=== PATIENT | male | born 1960 | race American Indian/Alaskan Native ===

== ENCOUNTER 2017-01-25 23:52 | Inpatient (IN) | payer OTHER ==
[2017-01-26] MEDS ORDERED: ZOFRAN IV ONE (00:31)
[2017-01-26] MEDS ORDERED: ANTIVERT PO ONE (00:31)
--- NOTE | 2017-01-26 00:42 | Emergency Department Report ---
HPI - General Chief Complaint: Dizziness Time Seen by Provider: 01/26/17 00:24 - HPI HPI: Room 17 The patient is a 56-year-old male presenting with a chief complaint of dizziness. The patient states partially to all his prior to arrival also name down and eating baked chicken and became dizzy. Patient states he feels as though the room was spinning but is unable to determine the direction. The patient states the dizziness worsens whenever he opens his eyes. Patient admits to occasional occipital headache but currently denies having head pain. Patient admits to frequent nausea vomiting. Patient denies any preceding trauma or fever. Patient states he had a similar episode last week that resolved spontaneously after 30 minutes. Patient denies URI symptoms or ear pain Location: Head Duration: Constant 2 hours Quality: Vertigo Severity: Severe Modifying factors: [see above] Context: [see above] Mode of transportation: EMS ED Past Medical Hx - Past Medical History Previous Medical History?: Yes Hx Hypertension: Yes Additional medical history: MIx1 in December 2016 - Surgical History Past Surgical History?: Yes Hx Appendectomy: Yes Additional Surgical History: achilles tendon - Family History Family history: no significant - Social History Smoking Status: Never Smoker Substance Use Type: None (denies illicit drug use) - Medications Home Medications: Home Medications Medication Instructions Recorded Confirmed Last Taken Type Aspirin [Aspirin BABY CHEW TAB] 81 mg PO QDAY 01/26/17 01/26/17 Unknown History Hydrochlorothiazide [HCTZ] 25 mg PO QDAY 01/26/17 01/26/17 Unknown History amLODIPine [Norvasc] 10 mg PO DAILY 01/26/17 01/26/17 Unknown History ED Review of Systems ROS: Stated complaint: LIGHT HEADED, NAUSEA AND VOMITING Other details as noted in HPI Comment: All other systems reviewed and negative Constitutional: denies: chills, fever Eyes: other (opening eyes stimulates vertigo) ENT: denies: ear pain, throat pain Respiratory: denies: cough, shortness of breath, wheezing Cardiovascular: denies: chest pain, palpitations Endocrine: no symptoms reported Gastrointestinal: nausea, vomiting Genitourinary: denies: urgency, dysuria Musculoskeletal: denies: back pain, joint swelling, arthralgia Skin: denies: rash, lesions Neurological: headache, vertigo Psychiatric: denies: anxiety, depression Hematological/Lymphatic: denies: easy bleeding, easy bruising Physical Exam - Physical Exam Vital Signs: Vital Signs 01/26/17 00:24 Temperature 98.8 F Pulse Rate 83 Respiratory 18 Rate Blood Pressure 156/100 [Right] O2 Sat by Pulse 99 Oximetry Physical Exam: GENERAL: The patient is well-developed well-nourished male lying on stretcher appearing to be in moderate discomfort. Patient in the The right lateral decubitus position holding emesis bag. [] HEENT: Normocephalic. Atraumatic. Patient initially refusing to open eyes secondary to extreme vertigo. Patient has moist mucous membranes. NECK: Supple. No meningitic signs are noted. Trachea midline CHEST/LUNGS: Clear to auscultation. There is no respiratory distress noted. HEART/CARDIOVASCULAR: Regular. There is no tachycardia. There is no gallop rub or murmur. ABDOMEN: Abdomen is soft, nontender. Patient has normal bowel sounds. There is no abdominal distention. SKIN: There is no rash. There is no edema. There is no diaphoresis. NEURO: The patient is awake, alert, and oriented. The patient is cooperative. The patient has no focal neurologic deficits. The patient has normal speech. Cranial nerves II through XII grossly intact MUSCULOSKELETAL: There is no evidence of acute injury. ED Course Vital Signs 01/26/17 00:24 Temperature 98.8 F Pulse Rate 83 Respiratory 18 Rate Blood Pressure 156/100 [Right] O2 Sat by Pulse 99 Oximetry - Reevaluation(s) Reevaluation #1: 01/26/17 02:56 Patient states his dizziness has decreased slightly from a 10/10 to an 8/10 Reevaluation #2: 01/26/17 03:51 After Ativan and meclizine the patient states his dizziness is still an 8/10. Will admit the patient to the hospital ED Medical Decision Making - Lab Data Result diagrams: 01/26/17 00:45 01/26/17 00:45 Laboratory Tests 01/26/17 01/26/17 01/26/17 00:45 00:45 00:45 WBC 9.1 RBC 5.27 H Hgb 15.6 H Hct 46.6 H MCV 88 MCH 30 MCHC 34 RDW 13.6 Plt Count 239 Lymph % (Auto) 18.1 Russell % (Auto) 5.9 Eos % (Auto) 1.3 Baso % (Auto) 0.6 Lymph # 1.6 Russell # 0.5 Eos # 0.1 Baso # 0.1 Seg Neutrophils % 74.1 H Seg Neutrophils # 6.8 Sodium 141 Potassium 3.7 Chloride 99.5 Carbon Dioxide 24 Anion Gap 21 BUN 18 Creatinine 1.2 Estimated GFR > 60 BUN/Creatinine Ratio 15.00 Glucose 148 H Calcium 9.5 Total Creatine Kinase 125 CK-MB (CK-2) 1.7 CK-MB (CK-2) Rel Index 1.3 Troponin T < 0.010 Plasma/Serum Alcohol < 0.01 - EKG Data -: EKG Interpreted by Me EKG shows normal: sinus rhythm Rate: normal - EKG Data When compared to previous EKG there are: previous EKG unavailable Interpretation: other (no ischemic changes seen) - Radiology Data Radiology results: report reviewed (CT head), image reviewed (CT head) CT head (read by radiologist)-there is no evidence of acute intracranial process - Differential Diagnosis vertigo, ICH, cerebellar mass Critical care attestation.: If time is entered above; I have spent that time in minutes in the direct care of this critically ill patient, excluding procedure time. ED Disposition Clinical Impression: Vertigo Disposition: DC-09 OP ADMIT IP TO THIS HOSP Is pt being admited?: Yes Does the pt Need Aspirin: Yes Condition: Fair Referrals: PRIMARY CARE, [Primary Care Provider] - 3-5 Days Time of Disposition: 03:53 (hospitalist paged)
[2017-01-26 01:52] LABS: Basophils % (Auto) 0.6 % (0.0-1.8); Eosinophils % (Auto) 1.3 % (0.0-4.3); Hematocrit 46.6 % (35.5-45.6); Hemoglobin 15.6 gm/dl (11.8-15.2); Mean Corpuscular HGB Conc 34 % (32-34); Mean Corpuscular Hemoglobin 30 pg (28-32); Mean Corpuscular Volume 88 fl (84-94); Platelet Count 239 K/mm3 (140-440); Red Blood Count 5.27 M/mm3 (3.65-5.03); Red Cell Distribution Width 13.6 % (13.2-15.2); White Blood Count 9.1 K/mm3 (4.5-11.0)
[2017-01-26 01:55] LABS: Creatine Kinase MB 1.7 ng/mL (0.0-4.0)
[2017-01-26 01:56] LABS: Anion Gap 21 mmol/L; Blood Urea Nitrogen 18 mg/dL (9-20); Calcium 9.5 mg/dL (8.4-10.2); Carbon Dioxide 24 mmol/L (22-30); Chloride 99.5 mmol/L (98-107); Creatine Kinase 125 units/L (55-170); Glucose 148 mg/dL (75-100); Potassium 3.7 mmol/L (3.6-5.0); Sodium 141 mmol/L (137-145)
--- NOTE | 2017-01-26 02:04 | Cat Scan Report ---
FINAL REPORT PROCEDURE: CT HEAD/BRAIN WO CON TECHNIQUE: Computerized tomography of the head was performed without contrast material. HISTORY: vertigo nausea and vomiting COMPARISON: No prior studies are available for comparison. FINDINGS: Skull and scalp: Normal. Paranasal sinuses: Normal. Ventricles and subarachnoid spaces: Normal. Cerebrum: No evidence of hemorrhage, acute infarction or mass . Cerebellum and brainstem: No evidence of hemorrhage, acute infarction or mass. Vasculature: Normal. Comments: None. IMPRESSION: There is no evidence of an acute intracranial process
[2017-01-26] MEDS ORDERED: ATIVAN IV ONE (02:48)
--- NOTE | 2017-01-26 07:10 | Admit Criteria Form ---
Admission Criteria Documentation: VERTIGO Clinical Indications for Admission to Inpatient Care (Place 'X' for any and all applicable criteria): Admission is indicated for ANY ONE of the following(1)(2)(3)(4): [ ]I. Acute bacterial labyrinthitis [ ]II. A suspected etiology that requires admission for treatment [ X]III. Inpatient admission required rather than observation care (Also use Vertigo: Observation Care as appropriate) because of ANY ONE of the following: [ ]a) Hemodynamic instability that is severe or persistent [ ]b) Signs or symptoms that are severe or persistent (eg, vomiting , orthostasis, inability to ambulate) [ ]c) Cardiac arrhythmias of immediate concern [ ]d) Severe (new) neurologic findings requiring inpatient care as indicated by ANY ONE of the following(6)(7) [ ]1) Cerebral bleeding, ischemia, or vasospasm(8)(9) [ ]2) Increased intracranial pressure or hydrocephalus(10) (11)(12) [ ]3) Papilledema [ ]4) Cerebral edema [ ]5) Mass effect on CT scan [ ]e) Vomiting that is severe or persistent [ ]f) Continuous IV infusion of anticoagulation, platelet inhibitor, vasoactive, or antiarrhythmic medication [ ]g) Cerebral bleeding, hydrocephalus, or vasospasm monitoring(14) [ ]h) Increased intracranial pressure or cerebral edema monitoring [X ]i) Other condition, treatment or monitoring requiring inpatient admission [ ]IV. Cerebellar, brainstem, or cerebral ischemia or hemorrhage(5) Extended stay beyond goal length of stay may be needed for evaluating and treating a specific cause of dizziness, including(26): [ ]a) Head injury (27) ( Also use Traumatic Brain Injury, Nonsurgical Treatment guideline) [ ]b) New-onset vertebrobasilar vascular insufficiency(23) [ ]c) Acute Meniere disease with intractable symptoms [ ]d) Cardiac arrhythmias or conduction defects [ ]e) Acute neurologic event causing dizziness [ ]f) Myocardial ischemia [ ]g) Acute bacterial labyrinthitis(1) [ ]h) Severe acute vestibular neuronitis(18) The original [facility] content created by Rebecca Diaz has been revised. The portions of the content which have been revised are identified through the use of italic text or in bold, and Rebecca Diaz has neither reviewed nor approved the modified material. All other unmodified content is copyright [facility]. Please see references footnoted in the original [facility] edition 2016 Admission Criteria Met: Yes
[2017-01-26] MEDS ORDERED: MILK OF MAGNESIA PO PRN (07:53)
[2017-01-26] MEDS ORDERED: DULCOLAX PR PRN (07:53)
[2017-01-26] MEDS: ZOFRAN IM SCH ×4 (10:30→22:35)
[2017-01-26] MEDS: D5NS 1,000 ML IV SCH (13:03)
[2017-01-26] MEDS: ANTIVERT PO SCH (13:16)
[2017-01-26] MEDS: LOVENOX SUB-Q SCH (13:18)
--- NOTE | 2017-01-26 16:00 | History and Physical Report ---
<SUMAN MONTELONGO - Last Filed: 01/27/17 11:20> History of Present Illness Date of examination: 01/26/17 Date of admission: 01/26/17 07:53 Chief complaint: Dizziness, vertigo History of present illness: Patient is a 56 years old -[place] with a history of hypertension, NM a month ago who presents to ED with complaint of dizziness, vertigo. Patient was in his usual state of health until 2 days ago. Patient reported when he was at home eating baked chicken, at the time he he felt dizzy. He described the dizziness as feeling like he was going to pass out. Also she states the room was spinning. Patient he denies lost of consciousness. Patient status the patient gets worse with light and opening his eyes, but sleeping and darkness makes it better. His discomfort was associated with headache nausea and vomiting, but he denies headache at present time. Patient has not started any new medicine or engaged in any new activities lately, but he admitted he had NM a month ago. Patient he has had vertigo in the past but that was very different from his current dizziness. He has not had any changes in vision, slurred speech, weakness numbness or tingling in the last week. Past History Past Medical History: hypertension, other (NM a month ago) Past Surgical History: No surgical history Social history: lives with family Family history: CAD, hypertension, stroke Medications and Allergies Allergies Allergy/AdvReac Type Severity Reaction Status Date / Time No Known Allergies Allergy Unverified 01/26/17 00:07 Home Medications Medication Instructions Recorded Confirmed Last Taken Type Aspirin [Aspirin BABY CHEW TAB] 81 mg PO QDAY 01/26/17 01/26/17 Unknown History Hydrochlorothiazide [HCTZ] 25 mg PO QDAY 01/26/17 01/26/17 Unknown History amLODIPine [Norvasc] 10 mg PO DAILY 01/26/17 01/26/17 Unknown History Active Meds: Active Medications Acetaminophen (Tylenol) 650 mg PO Q4H PRN PRN Reason: Pain MILD(1-3)/Fever >100.5/[place] Bisacodyl (Dulcolax) 10 mg LA QDAY PRN PRN Reason: Constipation unrelieved by MOM Enoxaparin Sodium (Lovenox) 40 mg SUB-Q QDAY [facility] Last Admin: 07/03/17 13:18 Dose: 40 mg Dextrose/Sodium Chloride (D5ns) 1,000 mls @ 75 mls/hr IV DIRECT [facility] Last Admin: 01/26/17 13:03 Dose: 75 mls/hr Magnesium Hydroxide (Milk Of Magnesia) 30 ml PO Q4H PRN PRN Reason: Constipation Meclizine HCl (Antivert) 25 mg PO DAILY [facility] Last Admin: 01/26/17 13:16 Dose: 25 mg Ondansetron HCl (Zofran) 4 mg IM Q4HR [facility] Last Admin: 01/26/17 13:17 Dose: 4 mg Review of Systems Constitutional: sweats, no weight loss, no weight gain, no fever Ears, nose, mouth and throat: headache, vertigo, no tinnitis, no decreased hearing, no nasal congestion Cardiovascular: lightheadedness, high blood pressure, no chest pain, no orthopnea, no palpitations, no syncope, no dyspnea on exertion, no decreased exercise tolerance Respiratory: no cough, no excessive sputum, no hemoptysis, no shortness of breath Gastrointestinal: nausea, vomiting Genitourinary Male: no dysuria, no hematuria, no flank pain Musculoskeletal: no neck stiffness, no neck pain, no shooting arm pain, no arm numbness/tingling, no low back pain Integumentary: no rash, no pruritis Neurological: vertigo, headaches, no head injury, no transient paralysis, no paralysis, no weakness, no numbness, no tingling, no seizures, no syncope, no lack of coordination, no migraines, no double vision, no loss of vision, no hearing difficulties Psychiatric: no anxiety, no memory loss Endocrine: no cold intolerance, no heat intolerance, no polyphagia, no excessive thirst Hematologic/Lymphatic: no easy bruising, no easy bleeding Allergic/Immunologic: no urticaria Exam - Constitutional Vitals: Temp Pulse Resp BP Pulse Ox 98 F 76 16 152/96 97 01/26/17 12:00 01/26/17 12:00 01/26/17 12:00 01/26/17 12:00 01/26/17 12:00 General appearance: Present: no acute distress - EENT Eyes: Present: PERRL ENT: hearing intact - Neck Neck: Present: supple - Respiratory Respiratory effort: normal - Cardiovascular Heart rate: 76 Rhythm: regular - Extremities Extremities: no ischemia Peripheral Pulses: within normal limits - Abdominal General gastrointestinal: Present: soft, non-tender Male genitourinary: Present: deferred - Rectal Rectal Exam: deferred - Integumentary Integumentary: Present: clear, warm - Musculoskeletal Musculoskeletal: strength equal bilaterally - Psychiatric Psychiatric: appropriate mood/affect - Neurologic Neurologic: CNII-XII intact - Allied Health Allied health notes reviewed: nursing Results - Labs CBC & Chem 7: 01/27/17 04:04 01/27/17 04:04 Labs: Laboratory Last Values WBC 9.1 K/mm3 (4.5-11.0) 01/26/17 00:45 RBC 5.27 M/mm3 (3.65-5.03) H 01/26/17 00:45 Hgb 15.6 gm/dl (11.8-15.2) H 01/26/17 00:45 Hct 46.6 % (35.5-45.6) H 01/26/17 00:45 MCV 88 fl (84-94) 01/26/17 00:45 MCH 30 pg (28-32) 01/26/17 00:45 MCHC 34 % (32-34) 01/26/17 00:45 RDW 13.6 % (13.2-15.2) 01/26/17 00:45 Plt Count 239 K/mm3 (140-440) 01/26/17 00:45 Lymph % (Auto) 18.1 % (13.4-35.0) 01/26/17 00:45 Mckean % (Auto) 5.9 % (0.0-7.3) 01/26/17 00:45 Eos % (Auto) 1.3 % (0.0-4.3) 01/26/17 00:45 Baso % (Auto) 0.6 % (0.0-1.8) 01/26/17 00:45 Lymph # 1.6 K/mm3 (1.2-5.4) 01/26/17 00:45 Mckean # 0.5 K/mm3 (0.0-0.8) 01/26/17 00:45 Eos # 0.1 K/mm3 (0.0-0.4) 01/26/17 00:45 Baso # 0.1 K/mm3 (0.0-0.1) 01/26/17 00:45 Seg Neutrophils % 74.1 % (40.0-70.0) H 01/26/17 00:45 Seg Neutrophils # 6.8 K/mm3 (1.8-7.7) 01/26/17 00:45 Sodium 141 mmol/L (137-145) 01/26/17 00:45 Potassium 3.7 mmol/L (3.6-5.0) 01/26/17 00:45 Chloride 99.5 mmol/L (98-107) 01/26/17 00:45 Carbon Dioxide 24 mmol/L (22-30) 01/26/17 00:45 Anion Gap 21 mmol/L 01/26/17 00:45 BUN 18 mg/dL (9-20) 01/26/17 00:45 Creatinine 1.2 mg/dL (0.8-1.5) 01/26/17 00:45 Estimated GFR > 60 ml/min 01/26/17 00:45 BUN/Creatinine Ratio 15.00 % 01/26/17 00:45 Glucose 148 mg/dL (75-100) H 01/26/17 00:45 Calcium 9.5 mg/dL (8.4-10.2) 01/26/17 00:45 Total Creatine Kinase 125 units/L (55-170) 01/26/17 00:45 CK-MB (CK-2) 1.7 ng/mL (0.0-4.0) 01/26/17 00:45 CK-MB (CK-2) Rel Index 1.3 (0-4) 01/26/17 00:45 Troponin T < 0.010 ng/mL (0.00-0.029) 01/26/17 00:45 Plasma/Serum Alcohol < 0.01 gm% (0-0.07) 01/26/17 00:45 - Imaging and Cardiology CT Scan - head: image reviewed (no evidence of acute intracranial process) Assessment and Plan Assessment and plan: ASSESSMENT/PLAN 1. Vertigo/ dizziness We will admit to MED/SURG CT of the head shows no evidence of an acute intracranial process Meclizine 25mg PO daily IV fluid hydration ordered MRI ordered Echocardiogram ordered VL Carotid duplex bilateral ordered Neurology consulted for further evaluation. 2. Hypertension We will continue on home antihypertensive medicines 3. Nausea and vomiting Continue on Zofran 4mg IV PRN DVT prophylaxis On Lovenox Patient full code <ORTEGA RAMSAY M - Last Filed: 01/28/17 16:52> History of Present Illness Date of admission: 01/26/17 07:53 Medications and Allergies Active Meds: Active Medications Acetaminophen (Tylenol) 650 mg PO Q4H PRN PRN Reason: Pain MILD(1-3)/Fever >100.5/[place] Amlodipine Besylate (Norvasc) 10 mg PO DAILY [facility] Last Admin: 01/28/17 10:18 Dose: 10 mg Aspirin (Baby Aspirin) 81 mg PO QDAY [facility] Last Admin: 01/28/17 10:18 Dose: 81 mg Bisacodyl (Dulcolax) 10 mg LA QDAY PRN PRN Reason: Constipation unrelieved by MOM Enoxaparin Sodium (Lovenox) 40 mg SUB-Q QDAY [facility] Last Admin: 01/28/17 10:13 Dose: 40 mg Hydrochlorothiazide (Hctz) 25 mg PO QDAY [facility] Last Admin: 01/28/17 10:18 Dose: 25 mg Dextrose/Sodium Chloride (D5ns) 1,000 mls @ 75 mls/hr IV DIRECT [facility] Last Admin: 01/28/17 05:08 Dose: 75 mls/hr Magnesium Hydroxide (Milk Of Magnesia) 30 ml PO Q4H PRN PRN Reason: Constipation Meclizine HCl (Antivert) 25 mg PO DAILY [facility] Last Admin: 01/28/17 10:18 Dose: 25 mg Methylprednisolone Sodium Succinate (Solu-Medrol) 40 mg IV Q24HR [facility] Last Admin: 01/28/17 10:13 Dose: 40 mg Ondansetron HCl (Zofran) 4 mg IM Q4HR [facility] Last Admin: 01/28/17 15:55 Dose: Not Given Exam - Constitutional Vitals: Temp Pulse Resp BP Pulse Ox 97.7 F 76 20 167/93 100 01/28/17 15:00 01/28/17 15:00 01/28/17 15:00 01/28/17 15:00 01/28/17 15:00 Results - Labs CBC & Chem 7: 01/27/17 04:04 01/27/17 04:04 Labs: Laboratory Last Values WBC 5.5 K/mm3 (4.5-11.0) 01/27/17 04:04 RBC 5.32 M/mm3 (3.65-5.03) H 01/27/17 04:04 Hgb 15.6 gm/dl (11.8-15.2) H 01/27/17 04:04 Hct 47.1 % (35.5-45.6) H 01/27/17 04:04 MCV 89 fl (84-94) 01/27/17 04:04 MCH 29 pg (28-32) 01/27/17 04:04 MCHC 33 % (32-34) 01/27/17 04:04 RDW 13.6 % (13.2-15.2) 01/27/17 04:04 Plt Count 241 K/mm3 (140-440) 01/27/17 04:04 Lymph % (Auto) 15.2 % (13.4-35.0) 01/27/17 04:04 Mckean % (Auto) 1.7 % (0.0-7.3) 01/27/17 04:04 Eos % (Auto) 0.1 % (0.0-4.3) 01/27/17 04:04 Baso % (Auto) 0.1 % (0.0-1.8) 01/27/17 04:04 Lymph # 0.8 K/mm3 (1.2-5.4) L 01/27/17 04:04 Mckean # 0.1 K/mm3 (0.0-0.8) 01/27/17 04:04 Eos # 0.0 K/mm3 (0.0-0.4) 01/27/17 04:04 Baso # 0.0 K/mm3 (0.0-0.1) 01/27/17 04:04 Seg Neutrophils % 82.9 % (40.0-70.0) H 01/27/17 04:04 Seg Neutrophils # 4.6 K/mm3 (1.8-7.7) 01/27/17 04:04 Sodium 137 mmol/L (137-145) 01/27/17 04:04 Potassium 4.1 mmol/L (3.6-5.0) 01/27/17 04:04 Chloride 100.6 mmol/L (98-107) 01/27/17 04:04 Carbon Dioxide 22 mmol/L (22-30) 01/27/17 04:04 Anion Gap 19 mmol/L 01/27/17 04:04 BUN 13 mg/dL (9-20) 01/27/17 04:04 Creatinine 1.1 mg/dL (0.8-1.5) 01/27/17 04:04 Estimated GFR > 60 ml/min 01/27/17 04:04 BUN/Creatinine Ratio 11.81 % 01/27/17 04:04 Glucose 139 mg/dL (75-100) H 01/27/17 04:04 Calcium 8.9 mg/dL (8.4-10.2) 01/27/17 04:04 Total Creatine Kinase 125 units/L (55-170) 01/26/17 00:45 CK-MB (CK-2) 1.7 ng/mL (0.0-4.0) 01/26/17 00:45 CK-MB (CK-2) Rel Index 1.3 (0-4) 01/26/17 00:45 Troponin T < 0.010 ng/mL (0.00-0.029) 01/26/17 00:45 Plasma/Serum Alcohol < 0.01 gm% (0-0.07) 01/26/17 00:45 Assessment and Plan Assessment and plan: I agreed with the assessment and management plan stated above.
[2017-01-27] MEDS: D5NS 1,000 ML IV SCH (01:29)
[2017-01-27] MEDS: ZOFRAN IM SCH ×6 (01:33→23:39)
[2017-01-27 05:38] LABS: Basophils % (Auto) 0.1 % (0.0-1.8); Eosinophils % (Auto) 0.1 % (0.0-4.3); Hematocrit 47.1 % (35.5-45.6); Hemoglobin 15.6 gm/dl (11.8-15.2); Mean Corpuscular HGB Conc 33 % (32-34); Mean Corpuscular Hemoglobin 29 pg (28-32); Mean Corpuscular Volume 89 fl (84-94); Platelet Count 241 K/mm3 (140-440); Red Blood Count 5.32 M/mm3 (3.65-5.03); Red Cell Distribution Width 13.6 % (13.2-15.2); White Blood Count 5.5 K/mm3 (4.5-11.0)
[2017-01-27 05:51] LABS: Anion Gap 19 mmol/L; BUN/Creatinine Ratio 11.81; Blood Urea Nitrogen 13 mg/dL (9-20); Calcium 8.9 mg/dL (8.4-10.2); Carbon Dioxide 22 mmol/L (22-30); Chloride 100.6 mmol/L (98-107); Glucose 139 mg/dL (75-100); Potassium 4.1 mmol/L (3.6-5.0); Sodium 137 mmol/L (137-145)
--- NOTE | 2017-01-27 09:01 | Progress Note ---
<SUMAN MONTELONGO - Last Filed: 01/27/17 11:16> Assessment and Plan Assessment and plan: 1. Vertigo/ dizziness CT of the head normal Continue Meclizine 25mg PO daily Started on Solu-Medrol 40 mg IV daily Continue IV fluid hydration ordered MRI ordered Echocardiogram awaiting for result VL Carotid duplex awaiting for result Neurology consulted for further evaluation. 2. Hypertension Continue on home antihypertensive medicines 3. Nausea and vomiting Started on Zofran 4mg IV PRN DVT prophylaxis On Lovenox Patient full code History Interval history: No overnight changes, patient verbalized feeling better. He denies nausea, vomiting, headache, but he still reported dizziness. Hospitalist Physical - Constitutional Vitals: Temp Pulse Resp BP Pulse Ox 98.2 F 76 18 148/90 98 01/27/17 08:18 01/27/17 08:18 01/27/17 08:18 01/27/17 08:18 01/27/17 08:18 General appearance: Present: no acute distress - EENT Eyes: Present: PERRL ENT: hearing intact - Neck Neck: Present: supple, normal ROM - Respiratory Respiratory effort: normal Respiratory: right: CTA - Cardiovascular Heart rate: 76 Rhythm: regular - Extremities Extremities: no ischemia Peripheral Pulses: within normal limits - Abdominal General gastrointestinal: soft, non-tender - Integumentary Integumentary: Present: clear - Psychiatric Psychiatric: appropriate mood/affect - Neurologic Neurologic: CNII-XII intact - Allied Health Allied health notes reviewed: nursing Results - Labs CBC & Chem 7: 01/27/17 04:04 01/27/17 04:04 Labs: Laboratory Last Values WBC 5.5 K/mm3 (4.5-11.0) 01/27/17 04:04 RBC 5.32 M/mm3 (3.65-5.03) H 01/27/17 04:04 Hgb 15.6 gm/dl (11.8-15.2) H 01/27/17 04:04 Hct 47.1 % (35.5-45.6) H 01/27/17 04:04 MCV 89 fl (84-94) 01/27/17 04:04 MCH 29 pg (28-32) 01/27/17 04:04 MCHC 33 % (32-34) 01/27/17 04:04 RDW 13.6 % (13.2-15.2) 01/27/17 04:04 Plt Count 241 K/mm3 (140-440) 01/27/17 04:04 Lymph % (Auto) 15.2 % (13.4-35.0) 01/27/17 04:04 [place] % (Auto) 1.7 % (0.0-7.3) 01/27/17 04:04 Eos % (Auto) 0.1 % (0.0-4.3) 01/27/17 04:04 Baso % (Auto) 0.1 % (0.0-1.8) 01/27/17 04:04 Lymph # 0.8 K/mm3 (1.2-5.4) L 01/27/17 04:04 [place] # 0.1 K/mm3 (0.0-0.8) 01/27/17 04:04 Eos # 0.0 K/mm3 (0.0-0.4) 01/27/17 04:04 Baso # 0.0 K/mm3 (0.0-0.1) 01/27/17 04:04 Seg Neutrophils % 82.9 % (40.0-70.0) H 01/27/17 04:04 Seg Neutrophils # 4.6 K/mm3 (1.8-7.7) 01/27/17 04:04 Sodium 137 mmol/L (137-145) 01/27/17 04:04 Potassium 4.1 mmol/L (3.6-5.0) 01/27/17 04:04 Chloride 100.6 mmol/L (98-107) 01/27/17 04:04 Carbon Dioxide 22 mmol/L (22-30) 01/27/17 04:04 Anion Gap 19 mmol/L 01/27/17 04:04 BUN 13 mg/dL (9-20) 01/27/17 04:04 Creatinine 1.1 mg/dL (0.8-1.5) 01/27/17 04:04 Estimated GFR > 60 ml/min 01/27/17 04:04 BUN/Creatinine Ratio 11.81 % 01/27/17 04:04 Glucose 139 mg/dL (75-100) H 01/27/17 04:04 Calcium 8.9 mg/dL (8.4-10.2) 01/27/17 04:04 Total Creatine Kinase 125 units/L (55-170) 01/26/17 00:45 CK-MB (CK-2) 1.7 ng/mL (0.0-4.0) 01/26/17 00:45 CK-MB (CK-2) Rel Index 1.3 (0-4) 01/26/17 00:45 Troponin T < 0.010 ng/mL (0.00-0.029) 01/26/17 00:45 Plasma/Serum Alcohol < 0.01 gm% (0-0.07) 01/26/17 00:45 <ORTEGA RAMSAY M - Last Filed: 01/28/17 16:53> Assessment and Plan Assessment and plan: I agreed with the assessment and mangement plan stated above. Hospitalist Physical - Constitutional Vitals: Temp Pulse Resp BP Pulse Ox 97.7 F 76 20 167/93 100 01/28/17 15:00 01/28/17 15:00 01/28/17 15:00 01/28/17 15:00 01/28/17 15:00 Results - Labs CBC & Chem 7: 01/27/17 04:04 01/27/17 04:04 Labs: Laboratory Last Values WBC 5.5 K/mm3 (4.5-11.0) 01/27/17 04:04 RBC 5.32 M/mm3 (3.65-5.03) H 01/27/17 04:04 Hgb 15.6 gm/dl (11.8-15.2) H 01/27/17 04:04 Hct 47.1 % (35.5-45.6) H 01/27/17 04:04 MCV 89 fl (84-94) 01/27/17 04:04 MCH 29 pg (28-32) 01/27/17 04:04 MCHC 33 % (32-34) 01/27/17 04:04 RDW 13.6 % (13.2-15.2) 01/27/17 04:04 Plt Count 241 K/mm3 (140-440) 01/27/17 04:04 Lymph % (Auto) 15.2 % (13.4-35.0) 01/27/17 04:04 [place] % (Auto) 1.7 % (0.0-7.3) 01/27/17 04:04 Eos % (Auto) 0.1 % (0.0-4.3) 01/27/17 04:04 Baso % (Auto) 0.1 % (0.0-1.8) 01/27/17 04:04 Lymph # 0.8 K/mm3 (1.2-5.4) L 01/27/17 04:04 [place] # 0.1 K/mm3 (0.0-0.8) 01/27/17 04:04 Eos # 0.0 K/mm3 (0.0-0.4) 01/27/17 04:04 Baso # 0.0 K/mm3 (0.0-0.1) 01/27/17 04:04 Seg Neutrophils % 82.9 % (40.0-70.0) H 01/27/17 04:04 Seg Neutrophils # 4.6 K/mm3 (1.8-7.7) 01/27/17 04:04 Sodium 137 mmol/L (137-145) 01/27/17 04:04 Potassium 4.1 mmol/L (3.6-5.0) 01/27/17 04:04 Chloride 100.6 mmol/L (98-107) 01/27/17 04:04 Carbon Dioxide 22 mmol/L (22-30) 01/27/17 04:04 Anion Gap 19 mmol/L 01/27/17 04:04 BUN 13 mg/dL (9-20) 01/27/17 04:04 Creatinine 1.1 mg/dL (0.8-1.5) 01/27/17 04:04 Estimated GFR > 60 ml/min 01/27/17 04:04 BUN/Creatinine Ratio 11.81 % 01/27/17 04:04 Glucose 139 mg/dL (75-100) H 01/27/17 04:04 Calcium 8.9 mg/dL (8.4-10.2) 01/27/17 04:04 Total Creatine Kinase 125 units/L (55-170) 01/26/17 00:45 CK-MB (CK-2) 1.7 ng/mL (0.0-4.0) 01/26/17 00:45 CK-MB (CK-2) Rel Index 1.3 (0-4) 01/26/17 00:45 Troponin T < 0.010 ng/mL (0.00-0.029) 01/26/17 00:45 Plasma/Serum Alcohol < 0.01 gm% (0-0.07) 01/26/17 00:45
[2017-01-27] MEDS: LOVENOX SUB-Q SCH (11:09)
[2017-01-27] MEDS: ANTIVERT PO SCH (11:09)
--- NOTE | 2017-01-27 11:35 | Consultation ---
History of Present Illness - Reason for Consult Consult date: 01/27/17 vertigo - History of Present Illness 56 yo BM seen for evaluation and hx of hearing loss right ear and severe vertigo for 2-3 days w/o relief a/w right sided headaches CT of the Head is normal PMH as noted ROS negative for TIA/ stroke head injury exam VS as noted exam shows loss hearing in the right ear can hear from left ear no facial weakness no gross ataxia or dysarthria EOM's are intact but slight variable horizontal nystagmus remainder of exam is negative Impression: 1. Central vertigo hearing loss suggests neural origin the MRI is needed other medical management is appropriate Past History Past Medical History: hypertension, other ([place] a month ago) Past Surgical History: No surgical history Social history: lives with family Family history: CAD, hypertension, stroke Medications and Allergies Allergies Allergy/AdvReac Type Severity Reaction Status Date / Time No Known Allergies Allergy Unverified 01/26/17 00:07 Home Medications Medication Instructions Recorded Confirmed Last Taken Type Aspirin [Aspirin BABY CHEW TAB] 81 mg PO QDAY 01/26/17 01/26/17 Unknown History Hydrochlorothiazide [HCTZ] 25 mg PO QDAY 01/26/17 01/26/17 Unknown History amLODIPine [Norvasc] 10 mg PO DAILY 01/26/17 01/26/17 Unknown History Active Meds: Active Medications Acetaminophen (Tylenol) 650 mg PO Q4H PRN PRN Reason: Pain MILD(1-3)/Fever >100.5/[place] Bisacodyl (Dulcolax) 10 mg MN QDAY PRN PRN Reason: Constipation unrelieved by MOM Enoxaparin Sodium (Lovenox) 40 mg SUB-Q QDAY [facility] Last Admin: 01/27/17 11:09 Dose: 40 mg Dextrose/Sodium Chloride (D5ns) 1,000 mls @ 75 mls/hr IV DIRECT [facility] Last Admin: 01/27/17 01:29 Dose: 75 mls/hr Magnesium Hydroxide (Milk Of Magnesia) 30 ml PO Q4H PRN PRN Reason: Constipation Meclizine HCl (Antivert) 25 mg PO DAILY [facility] Last Admin: 01/27/17 11:09 Dose: 25 mg Methylprednisolone Sodium Succinate (Solu-Medrol) 40 mg IV Q24HR [facility] Last Admin: 07/04/17 11:09 Dose: 40 mg Ondansetron HCl (Zofran) 4 mg IM Q4HR [facility] Last Admin: 01/27/17 11:09 Dose: Not Given Exam - Constitutional Vitals: Temp Pulse Resp BP Pulse Ox 98.2 F 76 18 148/90 98 01/27/17 08:18 01/27/17 08:18 01/27/17 08:18 01/27/17 08:18 01/27/17 08:18 Results - Labs CBC & Chem 7: 01/27/17 04:04 01/27/17 04:04 Labs: Abnormal lab results 01/27/17 01/27/17 Range/Units 04:04 04:04 RBC 5.32 H (3.65-5.03) M/mm3 Hgb 15.6 H (11.8-15.2) gm/dl Hct 47.1 H (35.5-45.6) % Lymph # 0.8 L (1.2-5.4) K/mm3 Seg Neutrophils % 82.9 H (40.0-70.0) % Glucose 139 H (75-100) mg/dL
[2017-01-28] MEDS: ZOFRAN IM SCH ×6 (02:00→21:24)
[2017-01-28] MEDS: D5NS 1,000 ML IV SCH (05:08)
--- NOTE | 2017-01-28 07:34 | Progress Note ---
<SUMAN MONTELONGO - Last Filed: 01/28/17 15:14> Assessment and Plan Assessment and plan: 1. Vertigo/ dizziness CT of the head normal Continue Meclizine and Solu-Medrol IV fluid hydration ordered MRI ordered but no machine broken and awaiting to be taken today Echocardiogram normal VL Carotid duplex normal Followed by Neurology. 2. Bradycardia Placed on remote telemetry for continuous cardiac monitoring IVF hydration 3. Hypertension Continue on home antihypertensive medicines 3. Nausea and vomiting Started on Zofran 4mg IV PRN DVT prophylaxis On Lovenox Patient full code History Interval history: patient has uneventful overnight, denies chest pain, lightheadedness, headache but he reported dizziness. Hospitalist Physical - Constitutional Vitals: Temp Pulse Resp BP Pulse Ox 98.1 F 55 L 20 184/113 100 01/28/17 07:05 01/28/17 07:05 01/28/17 07:05 01/28/17 07:05 01/28/17 07:05 General appearance: Present: no acute distress - EENT Eyes: Present: PERRL ENT: hearing intact - Neck Neck: Present: supple - Respiratory Respiratory effort: normal - Cardiovascular Heart rate: 50 (bradycardia) Rhythm: regular - Extremities Extremities: no ischemia, No edema Peripheral Pulses: within normal limits - Abdominal General gastrointestinal: soft, non-tender - Integumentary Integumentary: Present: clear, warm - Psychiatric Psychiatric: appropriate mood/affect - Neurologic Neurologic: CNII-XII intact - Allied Health Allied health notes reviewed: nursing Results - Labs CBC & Chem 7: 01/27/17 04:04 01/27/17 04:04 Labs: Laboratory Last Values WBC 5.5 K/mm3 (4.5-11.0) 01/27/17 04:04 RBC 5.32 M/mm3 (3.65-5.03) H 01/27/17 04:04 Hgb 15.6 gm/dl (11.8-15.2) H 01/27/17 04:04 Hct 47.1 % (35.5-45.6) H 01/27/17 04:04 MCV 89 fl (84-94) 01/27/17 04:04 MCH 29 pg (28-32) 01/27/17 04:04 MCHC 33 % (32-34) 01/27/17 04:04 RDW 13.6 % (13.2-15.2) 01/27/17 04:04 Plt Count 241 K/mm3 (140-440) 01/27/17 04:04 Lymph % (Auto) 15.2 % (13.4-35.0) 01/27/17 04:04 [place] % (Auto) 1.7 % (0.0-7.3) 01/27/17 04:04 Eos % (Auto) 0.1 % (0.0-4.3) 01/27/17 04:04 Baso % (Auto) 0.1 % (0.0-1.8) 01/27/17 04:04 Lymph # 0.8 K/mm3 (1.2-5.4) L 01/27/17 04:04 [place] # 0.1 K/mm3 (0.0-0.8) 01/27/17 04:04 Eos # 0.0 K/mm3 (0.0-0.4) 01/27/17 04:04 Baso # 0.0 K/mm3 (0.0-0.1) 01/27/17 04:04 Seg Neutrophils % 82.9 % (40.0-70.0) H 01/27/17 04:04 Seg Neutrophils # 4.6 K/mm3 (1.8-7.7) 01/27/17 04:04 Sodium 137 mmol/L (137-145) 01/27/17 04:04 Potassium 4.1 mmol/L (3.6-5.0) 01/27/17 04:04 Chloride 100.6 mmol/L (98-107) 01/27/17 04:04 Carbon Dioxide 22 mmol/L (22-30) 01/27/17 04:04 Anion Gap 19 mmol/L 01/27/17 04:04 BUN 13 mg/dL (9-20) 01/27/17 04:04 Creatinine 1.1 mg/dL (0.8-1.5) 01/27/17 04:04 Estimated GFR > 60 ml/min 01/27/17 04:04 BUN/Creatinine Ratio 11.81 % 01/27/17 04:04 Glucose 139 mg/dL (75-100) H 01/27/17 04:04 Calcium 8.9 mg/dL (8.4-10.2) 01/27/17 04:04 Total Creatine Kinase 125 units/L (55-170) 01/26/17 00:45 CK-MB (CK-2) 1.7 ng/mL (0.0-4.0) 01/26/17 00:45 CK-MB (CK-2) Rel Index 1.3 (0-4) 01/26/17 00:45 Troponin T < 0.010 ng/mL (0.00-0.029) 01/26/17 00:45 Plasma/Serum Alcohol < 0.01 gm% (0-0.07) 01/26/17 00:45 <ORTEGA RAMSAY M - Last Filed: 01/28/17 16:53> Assessment and Plan Assessment and plan: I agreed with the assessment and mangement plan stated above. Hospitalist Physical - Constitutional Vitals: Temp Pulse Resp BP Pulse Ox 97.7 F 76 20 167/93 100 01/28/17 15:00 01/28/17 15:00 01/28/17 15:00 01/28/17 15:00 01/28/17 15:00 Results - Labs CBC & Chem 7: 01/27/17 04:04 01/27/17 04:04 Labs: Laboratory Last Values WBC 5.5 K/mm3 (4.5-11.0) 01/27/17 04:04 RBC 5.32 M/mm3 (3.65-5.03) H 01/27/17 04:04 Hgb 15.6 gm/dl (11.8-15.2) H 01/27/17 04:04 Hct 47.1 % (35.5-45.6) H 01/27/17 04:04 MCV 89 fl (84-94) 01/27/17 04:04 MCH 29 pg (28-32) 01/27/17 04:04 MCHC 33 % (32-34) 01/27/17 04:04 RDW 13.6 % (13.2-15.2) 01/27/17 04:04 Plt Count 241 K/mm3 (140-440) 01/27/17 04:04 Lymph % (Auto) 15.2 % (13.4-35.0) 01/27/17 04:04 [place] % (Auto) 1.7 % (0.0-7.3) 01/27/17 04:04 Eos % (Auto) 0.1 % (0.0-4.3) 01/27/17 04:04 Baso % (Auto) 0.1 % (0.0-1.8) 01/27/17 04:04 Lymph # 0.8 K/mm3 (1.2-5.4) L 01/27/17 04:04 [place] # 0.1 K/mm3 (0.0-0.8) 01/27/17 04:04 Eos # 0.0 K/mm3 (0.0-0.4) 01/27/17 04:04 Baso # 0.0 K/mm3 (0.0-0.1) 01/27/17 04:04 Seg Neutrophils % 82.9 % (40.0-70.0) H 01/27/17 04:04 Seg Neutrophils # 4.6 K/mm3 (1.8-7.7) 01/27/17 04:04 Sodium 137 mmol/L (137-145) 01/27/17 04:04 Potassium 4.1 mmol/L (3.6-5.0) 01/27/17 04:04 Chloride 100.6 mmol/L (98-107) 01/27/17 04:04 Carbon Dioxide 22 mmol/L (22-30) 01/27/17 04:04 Anion Gap 19 mmol/L 01/27/17 04:04 BUN 13 mg/dL (9-20) 01/27/17 04:04 Creatinine 1.1 mg/dL (0.8-1.5) 01/27/17 04:04 Estimated GFR > 60 ml/min 01/27/17 04:04 BUN/Creatinine Ratio 11.81 % 01/27/17 04:04 Glucose 139 mg/dL (75-100) H 01/27/17 04:04 Calcium 8.9 mg/dL (8.4-10.2) 01/27/17 04:04 Total Creatine Kinase 125 units/L (55-170) 01/26/17 00:45 CK-MB (CK-2) 1.7 ng/mL (0.0-4.0) 01/26/17 00:45 CK-MB (CK-2) Rel Index 1.3 (0-4) 01/26/17 00:45 Troponin T < 0.010 ng/mL (0.00-0.029) 01/26/17 00:45 Plasma/Serum Alcohol < 0.01 gm% (0-0.07) 01/26/17 00:45
[2017-01-28] MEDS: LOVENOX SUB-Q SCH (10:13)
[2017-01-28] MEDS: BABY ASPIRIN PO SCH (10:18)
[2017-01-28] MEDS: NORVASC PO SCH (10:18)
[2017-01-28] MEDS: HCTZ PO SCH (10:18)
[2017-01-28] MEDS: ANTIVERT PO SCH (10:18)
--- NOTE | 2017-01-28 12:03 | Magnetic Resonance Report ---
MRI OF THE BRAIN WITHOUT CONTRAST: HISTORY: Vertigo PROCEDURE: Multiplanar, multisequence MR imaging of the brain without IV contrast was performed. FINDINGS: CT head performed 01/26/17 was reviewed. MRI demonstrates a 1.2 cm area of diffusion restriction in the right middle cerebellar peduncle on diffusion image 12. There are also 2 tiny foci of diffusion restriction measuring 3-4 mm in the inferior right cerebellar hemisphere on diffusion image 10. No additional areas of diffusion restriction are identified. No evidence for hemorrhage, mass or extra axial fluid collection. Mild nonspecific chronic white matter changes are noted which are likely appropriate for this persons age. No chronic infarct. The midline structures are central. The basal cisterns are patent. Normal ventricular size. The orbital cavities and sella turcica demonstrate no abnormality. The visualized paranasal sinuses and mastoid air cells are well aerated. IMPRESSION: Focal areas of acute to subacute ischemia are identified in the right middle cerebellar peduncle and inferior right cerebellar hemisphere as described.
[2017-01-29] MEDS: D5NS 1,000 ML IV SCH ×2 (00:11→15:41)
[2017-01-29] MEDS: ZOFRAN IM SCH ×6 (02:19→22:28)
--- NOTE | 2017-01-29 08:22 | Progress Note ---
<SUMAN MONTELONGO - Last Filed: 01/29/17 14:16> Assessment and Plan Assessment and plan: 1.Acute Ischemic Stroke MRI of the brain shows acute ischemia in the right middle cerebellar peduncle and inferior right cerebellar hemisphere. Patient started on Plavix, aspirin and Lipitor Physical therapy consulted Spoke with case management to look a placement for Acute Rehabilitation. Followed by Neurology. 2. Vertigo/ dizziness Due to acute ischemia to right middle and right inferior cerebellar hemisphere CT of the head normal Continue Meclizine and discontinued Solu-Medrol Gently IV fluid hydration Echocardiogram normal VL Carotid duplex normal 3. Hypertension Continue on home antihypertensive medicines 4. 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 DVT prophylaxis On Lovenox Patient full code Hospitalist Physical - Constitutional Vitals: Temp Pulse Resp BP Pulse Ox 97.5 F L 65 22 143/94 98 01/29/17 04:00 01/29/17 04:00 01/29/17 04:00 01/29/17 04:00 01/29/17 04:00 General appearance: Present: no acute distress Results - Labs CBC & Chem 7: 01/27/17 04:04 01/27/17 04:04 Labs: Laboratory Last Values WBC 5.5 K/mm3 (4.5-11.0) 01/27/17 04:04 RBC 5.32 M/mm3 (3.65-5.03) H 01/27/17 04:04 Hgb 15.6 gm/dl (11.8-15.2) H 01/27/17 04:04 Hct 47.1 % (35.5-45.6) H 01/27/17 04:04 MCV 89 fl (84-94) 01/27/17 04:04 MCH 29 pg (28-32) 01/27/17 04:04 MCHC 33 % (32-34) 01/27/17 04:04 RDW 13.6 % (13.2-15.2) 01/27/17 04:04 Plt Count 241 K/mm3 (140-440) 01/27/17 04:04 Lymph % (Auto) 15.2 % (13.4-35.0) 01/27/17 04:04 [place] % (Auto) 1.7 % (0.0-7.3) 01/27/17 04:04 Eos % (Auto) 0.1 % (0.0-4.3) 01/27/17 04:04 Baso % (Auto) 0.1 % (0.0-1.8) 01/27/17 04:04 Lymph # 0.8 K/mm3 (1.2-5.4) L 01/27/17 04:04 [place] # 0.1 K/mm3 (0.0-0.8) 01/27/17 04:04 Eos # 0.0 K/mm3 (0.0-0.4) 01/27/17 04:04 Baso # 0.0 K/mm3 (0.0-0.1) 01/27/17 04:04 Seg Neutrophils % 82.9 % (40.0-70.0) H 01/27/17 04:04 Seg Neutrophils # 4.6 K/mm3 (1.8-7.7) 01/27/17 04:04 Sodium 137 mmol/L (137-145) 01/27/17 04:04 Potassium 4.1 mmol/L (3.6-5.0) 01/27/17 04:04 Chloride 100.6 mmol/L (98-107) 01/27/17 04:04 Carbon Dioxide 22 mmol/L (22-30) 01/27/17 04:04 Anion Gap 19 mmol/L 01/27/17 04:04 BUN 13 mg/dL (9-20) 01/27/17 04:04 Creatinine 1.1 mg/dL (0.8-1.5) 01/27/17 04:04 Estimated GFR > 60 ml/min 01/27/17 04:04 BUN/Creatinine Ratio 11.81 % 01/27/17 04:04 Glucose 139 mg/dL (75-100) H 01/27/17 04:04 Calcium 8.9 mg/dL (8.4-10.2) 01/27/17 04:04 Total Creatine Kinase 125 units/L (55-170) 01/26/17 00:45 CK-MB (CK-2) 1.7 ng/mL (0.0-4.0) 01/26/17 00:45 CK-MB (CK-2) Rel Index 1.3 (0-4) 01/26/17 00:45 Troponin T < 0.010 ng/mL (0.00-0.029) 01/26/17 00:45 Plasma/Serum Alcohol < 0.01 gm% (0-0.07) 01/26/17 00:45 <ORTEGA RAMSAY M - Last Filed: 01/29/17 16:23> Assessment and Plan Assessment and plan: I agreed with the management and plan of the patient. Hospitalist Physical - Constitutional Vitals: Temp Pulse Resp BP Pulse Ox 98.1 F 64 19 173/114 98 01/29/17 12:00 01/29/17 12:00 01/29/17 12:00 01/29/17 12:00 01/29/17 10:00 Results - Labs CBC & Chem 7: 01/27/17 04:04 01/27/17 04:04 Labs: Laboratory Last Values WBC 5.5 K/mm3 (4.5-11.0) 01/27/17 04:04 RBC 5.32 M/mm3 (3.65-5.03) H 01/27/17 04:04 Hgb 15.6 gm/dl (11.8-15.2) H 01/27/17 04:04 Hct 47.1 % (35.5-45.6) H 01/27/17 04:04 MCV 89 fl (84-94) 01/27/17 04:04 MCH 29 pg (28-32) 01/27/17 04:04 MCHC 33 % (32-34) 01/27/17 04:04 RDW 13.6 % (13.2-15.2) 01/27/17 04:04 Plt Count 241 K/mm3 (140-440) 01/27/17 04:04 Lymph % (Auto) 15.2 % (13.4-35.0) 01/27/17 04:04 [place] % (Auto) 1.7 % (0.0-7.3) 01/27/17 04:04 Eos % (Auto) 0.1 % (0.0-4.3) 01/27/17 04:04 Baso % (Auto) 0.1 % (0.0-1.8) 01/27/17 04:04 Lymph # 0.8 K/mm3 (1.2-5.4) L 01/27/17 04:04 [place] # 0.1 K/mm3 (0.0-0.8) 01/27/17 04:04 Eos # 0.0 K/mm3 (0.0-0.4) 01/27/17 04:04 Baso # 0.0 K/mm3 (0.0-0.1) 01/27/17 04:04 Seg Neutrophils % 82.9 % (40.0-70.0) H 01/27/17 04:04 Seg Neutrophils # 4.6 K/mm3 (1.8-7.7) 01/27/17 04:04 Sodium 137 mmol/L (137-145) 01/27/17 04:04 Potassium 4.1 mmol/L (3.6-5.0) 01/27/17 04:04 Chloride 100.6 mmol/L (98-107) 01/27/17 04:04 Carbon Dioxide 22 mmol/L (22-30) 01/27/17 04:04 Anion Gap 19 mmol/L 01/27/17 04:04 BUN 13 mg/dL (9-20) 01/27/17 04:04 Creatinine 1.1 mg/dL (0.8-1.5) 01/27/17 04:04 Estimated GFR > 60 ml/min 01/27/17 04:04 BUN/Creatinine Ratio 11.81 % 01/27/17 04:04 Glucose 139 mg/dL (75-100) H 01/27/17 04:04 Calcium 8.9 mg/dL (8.4-10.2) 01/27/17 04:04 Total Creatine Kinase 125 units/L (55-170) 01/26/17 00:45 CK-MB (CK-2) 1.7 ng/mL (0.0-4.0) 01/26/17 00:45 CK-MB (CK-2) Rel Index 1.3 (0-4) 01/26/17 00:45 Troponin T < 0.010 ng/mL (0.00-0.029) 01/26/17 00:45 Plasma/Serum Alcohol < 0.01 gm% (0-0.07) 01/26/17 00:45
[2017-01-29] MEDS: HCTZ PO SCH (10:05)
[2017-01-29] MEDS: BABY ASPIRIN PO SCH (10:05)
[2017-01-29] MEDS: NORVASC PO SCH (10:05)
[2017-01-29] MEDS: PLAVIX PO SCH (10:05)
[2017-01-29] MEDS: LOVENOX SUB-Q SCH (10:06)
[2017-01-29] MEDS: ANTIVERT PO SCH (10:06)
[2017-01-30] MEDS: ZOFRAN IM SCH ×5 (02:52→18:55)
[2017-01-30] MEDS: D5NS 1,000 ML IV SCH (06:50)
--- NOTE | 2017-01-30 07:21 | Vascular Lab Report ---
CAROTID DUPLEX STUDY: RIGHT PSVEDV CCA PROX:7821 CCA DIST:7725 ICA PROX:4717 ICA MID:6727 ICA DIST:6829 ECA: 50 VERT: 38 15 LEFT PSVEDV CCA PROX:9524 CCA DIST:8726 ICA PROX:4918 ICA MID:6730 ICA DIST:5724 ECA: 52 VERT: 45 16 REASON FOR EXAM: Carotid artery stenosis/syncope. COMMENTS ON THE RIGHT: Doppler frequency analysis is consistent with 16 to 49 percent diameter reduction of the internal carotid artery. Minimal amount of plaque is seen. The common carotid artery is patent. The external carotid artery is patent. The vertebral artery has antegrade flow. COMMENTS ON THE LEFT: Doppler frequency analysis is consistent with 16 to 49 percent diameter reduction of the internal carotid artery. Minimal amount of plaque is seen. The common carotid artery is patent. The external carotid artery is patent. The vertebral artery has antegrade flow. IMPRESSION: Less than 50% diameter reduction in the internal carotid arteries bilaterally. Consider repeat carotid artery duplex in 12 months.78
--- NOTE | 2017-01-30 08:33 | Progress Note ---
<SUMAN MONTELONGO - Last Filed: 01/30/17 13:53> Assessment and Plan Assessment and plan: 1.Acute Ischemic Stroke MRI of the brain shows acute ischemia in the right middle cerebellar peduncle and inferior right cerebellar hemisphere. Continue on Plavix, aspirin and Lipitor Physical therapy on board Awaiting for Acute Rehabilitation placement . Followed by Neurology. 2. Vertigo/ dizziness Due to acute ischemia to right middle and right inferior cerebellar hemisphere CT of the head normal Continue Meclizine Gently IV fluid hydration Echocardiogram normal VL Carotid duplex normal 3. Hypertension Continue on home antihypertensive medicines 4. 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 DVT prophylaxis On Lovenox Patient full code History Interval history: patient reported mild headache but, denies chest pain, lightheadedness and dizziness. Hospitalist Physical - Constitutional Vitals: Temp Pulse Resp BP Pulse Ox 98.7 F 67 20 127/93 99 01/30/17 03:35 01/30/17 03:35 01/30/17 03:35 01/30/17 03:35 01/30/17 03:35 General appearance: Present: no acute distress - EENT Eyes: Present: PERRL ENT: hearing intact - Neck Neck: Present: supple - Respiratory Respiratory effort: normal - Cardiovascular Heart rate: 65 Rhythm: regular - Extremities Extremities: no ischemia Peripheral Pulses: within normal limits - Abdominal General gastrointestinal: soft, non-tender - Integumentary Integumentary: Present: clear - Psychiatric Psychiatric: appropriate mood/affect - Neurologic Neurologic: moves all extremities - Allied Health Allied health notes reviewed: nursing Results - Labs CBC & Chem 7: 01/27/17 04:04 01/27/17 04:04 Labs: Laboratory Last Values WBC 5.5 K/mm3 (4.5-11.0) 01/27/17 04:04 RBC 5.32 M/mm3 (3.65-5.03) H 01/27/17 04:04 Hgb 15.6 gm/dl (11.8-15.2) H 01/27/17 04:04 Hct 47.1 % (35.5-45.6) H 01/27/17 04:04 MCV 89 fl (84-94) 01/27/17 04:04 MCH 29 pg (28-32) 01/27/17 04:04 MCHC 33 % (32-34) 01/27/17 04:04 RDW 13.6 % (13.2-15.2) 01/27/17 04:04 Plt Count 241 K/mm3 (140-440) 01/27/17 04:04 Lymph % (Auto) 15.2 % (13.4-35.0) 01/27/17 04:04 [place] % (Auto) 1.7 % (0.0-7.3) 01/27/17 04:04 Eos % (Auto) 0.1 % (0.0-4.3) 01/27/17 04:04 Baso % (Auto) 0.1 % (0.0-1.8) 01/27/17 04:04 Lymph # 0.8 K/mm3 (1.2-5.4) L 01/27/17 04:04 [place] # 0.1 K/mm3 (0.0-0.8) 01/27/17 04:04 Eos # 0.0 K/mm3 (0.0-0.4) 01/27/17 04:04 Baso # 0.0 K/mm3 (0.0-0.1) 01/27/17 04:04 Seg Neutrophils % 82.9 % (40.0-70.0) H 01/27/17 04:04 Seg Neutrophils # 4.6 K/mm3 (1.8-7.7) 01/27/17 04:04 Sodium 137 mmol/L (137-145) 01/27/17 04:04 Potassium 4.1 mmol/L (3.6-5.0) 01/27/17 04:04 Chloride 100.6 mmol/L (98-107) 01/27/17 04:04 Carbon Dioxide 22 mmol/L (22-30) 01/27/17 04:04 Anion Gap 19 mmol/L 01/27/17 04:04 BUN 13 mg/dL (9-20) 01/27/17 04:04 Creatinine 1.1 mg/dL (0.8-1.5) 01/27/17 04:04 Estimated GFR > 60 ml/min 01/27/17 04:04 BUN/Creatinine Ratio 11.81 % 01/27/17 04:04 Glucose 139 mg/dL (75-100) H 01/27/17 04:04 Calcium 8.9 mg/dL (8.4-10.2) 01/27/17 04:04 Total Creatine Kinase 125 units/L (55-170) 01/26/17 00:45 CK-MB (CK-2) 1.7 ng/mL (0.0-4.0) 01/26/17 00:45 CK-MB (CK-2) Rel Index 1.3 (0-4) 01/26/17 00:45 Troponin T < 0.010 ng/mL (0.00-0.029) 01/26/17 00:45 Plasma/Serum Alcohol < 0.01 gm% (0-0.07) 01/26/17 00:45 <ORTEGA RAMSAY M - Last Filed: 01/31/17 07:58> Assessment and Plan Assessment and plan: I have discussed the assessment and management plan of the patient and agreed with the above plan of care. Hospitalist Physical - Constitutional Vitals: Temp Pulse Resp BP Pulse Ox 98.6 F 97 H 20 128/95 98 01/30/17 21:35 01/30/17 21:35 01/30/17 21:35 01/30/17 21:35 01/30/17 21:35 Results - Labs CBC & Chem 7: 01/27/17 04:04 01/27/17 04:04 Labs: Laboratory Last Values WBC 5.5 K/mm3 (4.5-11.0) 01/27/17 04:04 RBC 5.32 M/mm3 (3.65-5.03) H 01/27/17 04:04 Hgb 15.6 gm/dl (11.8-15.2) H 01/27/17 04:04 Hct 47.1 % (35.5-45.6) H 01/27/17 04:04 MCV 89 fl (84-94) 01/27/17 04:04 MCH 29 pg (28-32) 01/27/17 04:04 MCHC 33 % (32-34) 01/27/17 04:04 RDW 13.6 % (13.2-15.2) 01/27/17 04:04 Plt Count 241 K/mm3 (140-440) 01/27/17 04:04 Lymph % (Auto) 15.2 % (13.4-35.0) 01/27/17 04:04 [place] % (Auto) 1.7 % (0.0-7.3) 01/27/17 04:04 Eos % (Auto) 0.1 % (0.0-4.3) 01/27/17 04:04 Baso % (Auto) 0.1 % (0.0-1.8) 01/27/17 04:04 Lymph # 0.8 K/mm3 (1.2-5.4) L 01/27/17 04:04 [place] # 0.1 K/mm3 (0.0-0.8) 01/27/17 04:04 Eos # 0.0 K/mm3 (0.0-0.4) 01/27/17 04:04 Baso # 0.0 K/mm3 (0.0-0.1) 01/27/17 04:04 Seg Neutrophils % 82.9 % (40.0-70.0) H 01/27/17 04:04 Seg Neutrophils # 4.6 K/mm3 (1.8-7.7) 01/27/17 04:04 Sodium 137 mmol/L (137-145) 01/27/17 04:04 Potassium 4.1 mmol/L (3.6-5.0) 01/27/17 04:04 Chloride 100.6 mmol/L (98-107) 01/27/17 04:04 Carbon Dioxide 22 mmol/L (22-30) 01/27/17 04:04 Anion Gap 19 mmol/L 01/27/17 04:04 BUN 13 mg/dL (9-20) 01/27/17 04:04 Creatinine 1.1 mg/dL (0.8-1.5) 01/27/17 04:04 Estimated GFR > 60 ml/min 01/27/17 04:04 BUN/Creatinine Ratio 11.81 % 01/27/17 04:04 Glucose 139 mg/dL (75-100) H 01/27/17 04:04 Calcium 8.9 mg/dL (8.4-10.2) 01/27/17 04:04 Total Creatine Kinase 125 units/L (55-170) 01/26/17 00:45 CK-MB (CK-2) 1.7 ng/mL (0.0-4.0) 01/26/17 00:45 CK-MB (CK-2) Rel Index 1.3 (0-4) 01/26/17 00:45 Troponin T < 0.010 ng/mL (0.00-0.029) 01/26/17 00:45 Plasma/Serum Alcohol < 0.01 gm% (0-0.07) 01/26/17 00:45
[2017-01-30] MEDS: HCTZ PO SCH (10:35)
[2017-01-30] MEDS: ANTIVERT PO SCH (10:35)
[2017-01-30] MEDS: NORVASC PO SCH (10:35)
[2017-01-30] MEDS: BABY ASPIRIN PO SCH (10:35)
[2017-01-30] MEDS: LOVENOX SUB-Q SCH (10:36)
[2017-01-30] MEDS: PLAVIX PO SCH (10:36)
[2017-01-30] MEDS: TYLENOL PO PRN (21:41)
[2017-01-31] MEDS: D5NS 1,000 ML IV SCH ×2 (00:13→10:36)
[2017-01-31] MEDS: ZOFRAN IM SCH ×6 (06:03→23:48)
[2017-01-31 08:18] LABS: Hematocrit 51.7 % (35.5-45.6); Hemoglobin 16.9 gm/dl (11.8-15.2); Mean Corpuscular HGB Conc 33 % (32-34); Mean Corpuscular Hemoglobin 29 pg (28-32); Mean Corpuscular Volume 88 fl (84-94); Platelet Count 254 K/mm3 (140-440); Red Blood Count 5.86 M/mm3 (3.65-5.03); Red Cell Distribution Width 13.4 % (13.2-15.2); White Blood Count 5.9 K/mm3 (4.5-11.0)
[2017-01-31 08:37] LABS: BUN/Creatinine Ratio 7.64; Chloride 100.2 mmol/L (98-107); Potassium 4.5 mmol/L (3.6-5.0)
[2017-01-31] MEDS: NORVASC PO SCH (10:28)
[2017-01-31] MEDS: PLAVIX PO SCH (10:28)
[2017-01-31] MEDS: ANTIVERT PO SCH (10:28)
[2017-01-31] MEDS: HCTZ PO SCH (10:28)
[2017-01-31] MEDS: LOVENOX SUB-Q SCH (10:28)
[2017-01-31] MEDS: BABY ASPIRIN PO SCH (10:36)
[2017-01-31] MEDS ORDERED: PERCOCET 5/325 PO PRN (10:43)
[2017-01-31] MEDS ORDERED: CHLORASEPTIC MM PRN (10:44)
--- NOTE | 2017-01-31 10:47 | Progress Note ---
Assessment and Plan Assessment and plan: Acute Ischemic Stroke with central vertigo - MRI of the brain shows acute ischemia in the right middle cerebellar peduncle and inferior right cerebellar hemisphere - Continue plavix, aspirin and lipitor - Physical therapy - Electrocardiogram and carotid duplex normal - Gentle IV fluid hydration HTN - BP is currently controlled Acute Kidney Injury - Cr this morning is 1.7 - Gentle hydration DVT prophylaxis - On levonox Disposition - Waiting acute rehabilitation placement History Interval history: Patient was seen and evaluated this morning, patient's vertigo was getting better, complains sore throat but no difficulty of swelling. Hospitalist Physical - Physical exam Narrative exam: Not in cardiopulmonary distress. The patient appeared well nourished and normally developed. Vital signs as documented. Head exam is unremarkable. No scleral icterus . Neck is without jugular venous distension, thyromegaly, or carotid bruits. Lungs are clear to auscultation. Cardiac exam reveals regular rate and Rhythm. Abdominal exam reveals normal bowel sounds, no masses, no organomegaly and no aortic enlargement. Extremities are nonedematous and both femoral and pedal pulses are normal. 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 Fascial asymmetry. - Constitutional Vitals: Temp Pulse Resp BP Pulse Ox 98.0 F 71 20 122/92 97 01/31/17 07:00 01/31/17 07:00 01/31/17 07:00 01/31/17 07:00 01/31/17 07:00 General appearance: Present: no acute distress Results - Labs CBC & Chem 7: 01/31/17 08:05 01/31/17 08:05 Labs: Laboratory Last Values WBC 5.9 K/mm3 (4.5-11.0) 01/31/17 08:05 RBC 5.86 M/mm3 (3.65-5.03) H 01/31/17 08:05 Hgb 16.9 gm/dl (11.8-15.2) H 01/31/17 08:05 Hct 51.7 % (35.5-45.6) H 01/31/17 08:05 MCV 88 fl (84-94) 01/31/17 08:05 MCH 29 pg (28-32) 01/31/17 08:05 MCHC 33 % (32-34) 01/31/17 08:05 RDW 13.4 % (13.2-15.2) 01/31/17 08:05 Plt Count 254 K/mm3 (140-440) 01/31/17 08:05 Lymph % (Auto) 15.2 % (13.4-35.0) 01/27/17 04:04 [place] % (Auto) 1.7 % (0.0-7.3) 01/27/17 04:04 Eos % (Auto) 0.1 % (0.0-4.3) 01/27/17 04:04 Baso % (Auto) 0.1 % (0.0-1.8) 01/27/17 04:04 Lymph # 0.8 K/mm3 (1.2-5.4) L 01/27/17 04:04 [place] # 0.1 K/mm3 (0.0-0.8) 01/27/17 04:04 Eos # 0.0 K/mm3 (0.0-0.4) 01/27/17 04:04 Baso # 0.0 K/mm3 (0.0-0.1) 01/27/17 04:04 Seg Neutrophils % 82.9 % (40.0-70.0) H 01/27/17 04:04 Seg Neutrophils # 4.6 K/mm3 (1.8-7.7) 01/27/17 04:04 Sodium 141 mmol/L (137-145) 01/31/17 08:05 Potassium 4.5 mmol/L (3.6-5.0) 01/31/17 08:05 Chloride 100.2 mmol/L (98-107) 01/31/17 08:05 Carbon Dioxide 30 mmol/L (22-30) D 01/31/17 08:05 Anion Gap 15 mmol/L 01/31/17 08:05 BUN 13 mg/dL (9-20) 01/31/17 08:05 Creatinine 1.7 mg/dL (0.8-1.5) H D 01/31/17 08:05 Estimated GFR 51 ml/min 01/31/17 08:05 BUN/Creatinine Ratio 7.64 % 01/31/17 08:05 Glucose 134 mg/dL (75-100) H 01/31/17 08:05 Calcium 9.0 mg/dL (8.4-10.2) 07/08/17 08:05 Total Creatine Kinase 125 units/L (55-170) 01/26/17 00:45 CK-MB (CK-2) 1.7 ng/mL (0.0-4.0) 01/26/17 00:45 CK-MB (CK-2) Rel Index 1.3 (0-4) 01/26/17 00:45 Troponin T < 0.010 ng/mL (0.00-0.029) 01/26/17 00:45 Plasma/Serum Alcohol < 0.01 gm% (0-0.07) 01/26/17 00:45
[2017-01-31] MEDS ORDERED: NACL 0.9% 1000 ML 2,000 ML IV SCH (12:00)
[2017-02-01] MEDS: ZOFRAN IM SCH ×4 (03:25→13:29)
[2017-02-01] MEDS: NORVASC PO SCH ×2 (10:00→15:33)
[2017-02-01] MEDS: HCTZ PO SCH ×2 (10:00→15:33)
[2017-02-01] MEDS: PLAVIX PO SCH ×2 (10:00→15:33)
[2017-02-01] MEDS: LOVENOX SUB-Q SCH (10:00)
[2017-02-01] MEDS: BABY ASPIRIN PO SCH (10:26)
[2017-02-01] MEDS: ANTIVERT PO SCH (10:29)
--- NOTE | 2017-02-01 13:05 | Progress Note ---
Assessment and Plan Assessment and plan: 57-year-old with acute to subacute CVA. - Patient Problems (1) CVA (cerebrovascular accident) Current Visit: Yes Status: Acute Qualifiers: CVA mechanism: C Precerebral and cerebral artery: cerebellar artery Laterality of affected vessel: right Plan to address problem: Hypertension at present patient awaiting placement for rehabilitation. Currently on aspirin and Plavix which I agree. Long discussion about MATCH trial family and patient. They understand. Aspirin Plavix and statin. Rehabilitation. (2) Hypertension Current Visit: Yes Status: Acute Qualifiers: Hypertension type: H Plan to address problem: Present fairly well controlled with amlodipine. Family wants to trains from amlodipine not sure why this time we'll continue amlodipine until further discussion with family. (3) Lipidemia Current Visit: Yes Status: Acute Qualifiers: Hyperlipidemia type: H (4) Vertigo Current Visit: Yes Status: Acute Plan to address problem: Resolving was secondary to most likely subacute CVA. History Interval history: Agent but alert oriented able to make needs known. Sister and at bedside. All questions and concerns answered to their satisfaction. Long discussion about pros and cons of aspirin and aspirin versus Plavix for an to platelet activity. Hospitalist Physical - Constitutional Vitals: Temp Pulse Resp BP Pulse Ox 99.0 F 87 20 116/89 95 02/01/17 07:00 02/01/17 07:00 02/01/17 07:00 02/01/17 07:00 02/01/17 07:00 General appearance: Present: no acute distress - EENT Eyes: Present: PERRL, EOM intact ENT: clear oral mucosa, dentition normal, other (ill some decreased hearing) - Neck Neck: Present: supple, normal ROM - Respiratory Respiratory effort: normal Respiratory: bilateral: CTA - Cardiovascular Rhythm: regular Heart Sounds: Present: S1 & S2 - Extremities Extremities: no ischemia, pulses intact, pulses symmetrical, No edema, normal temperature, normal color - Abdominal General gastrointestinal: soft, non-tender, non-distended - Psychiatric Psychiatric: appropriate mood/affect, cooperative - Neurologic Neurologic: focal deficits Results - Labs CBC & Chem 7: 01/31/17 08:05 01/31/17 08:05 Labs: Laboratory Last Values WBC 5.9 K/mm3 (4.5-11.0) 01/31/17 08:05 RBC 5.86 M/mm3 (3.65-5.03) H 01/31/17 08:05 Hgb 16.9 gm/dl (11.8-15.2) H 01/31/17 08:05 Hct 51.7 % (35.5-45.6) H 01/31/17 08:05 MCV 88 fl (84-94) 01/31/17 08:05 MCH 29 pg (28-32) 01/31/17 08:05 MCHC 33 % (32-34) 01/31/17 08:05 RDW 13.4 % (13.2-15.2) 01/31/17 08:05 Plt Count 254 K/mm3 (140-440) 01/31/17 08:05 Lymph % (Auto) 15.2 % (13.4-35.0) 01/27/17 04:04 [place] % (Auto) 1.7 % (0.0-7.3) 01/27/17 04:04 Eos % (Auto) 0.1 % (0.0-4.3) 01/27/17 04:04 Baso % (Auto) 0.1 % (0.0-1.8) 01/27/17 04:04 Lymph # 0.8 K/mm3 (1.2-5.4) L 01/27/17 04:04 [place] # 0.1 K/mm3 (0.0-0.8) 01/27/17 04:04 Eos # 0.0 K/mm3 (0.0-0.4) 01/27/17 04:04 Baso # 0.0 K/mm3 (0.0-0.1) 01/27/17 04:04 Seg Neutrophils % 82.9 % (40.0-70.0) H 01/27/17 04:04 Seg Neutrophils # 4.6 K/mm3 (1.8-7.7) 01/27/17 04:04 Sodium 141 mmol/L (137-145) 01/31/17 08:05 Potassium 4.5 mmol/L (3.6-5.0) 01/31/17 08:05 Chloride 100.2 mmol/L (98-107) 01/31/17 08:05 Carbon Dioxide 30 mmol/L (22-30) D 01/31/17 08:05 Anion Gap 15 mmol/L 01/31/17 08:05 BUN 13 mg/dL (9-20) 01/31/17 08:05 Creatinine 1.7 mg/dL (0.8-1.5) H D 01/31/17 08:05 Estimated GFR 51 ml/min 01/31/17 08:05 BUN/Creatinine Ratio 7.64 % 01/31/17 08:05 Glucose 134 mg/dL (75-100) H 01/31/17 08:05 Calcium 9.0 mg/dL (8.4-10.2) 01/31/17 08:05 Total Creatine Kinase 125 units/L (55-170) 01/26/17 00:45 CK-MB (CK-2) 1.7 ng/mL (0.0-4.0) 01/26/17 00:45 CK-MB (CK-2) Rel Index 1.3 (0-4) 01/26/17 00:45 Troponin T < 0.010 ng/mL (0.00-0.029) 01/26/17 00:45 Triglycerides 205 mg/dL (2-149) H 01/29/17 08:05 Cholesterol 198 mg/dL (50-199) 01/29/17 08:05 LDL Cholesterol Direct 112 mg/dL (50-130) 01/29/17 08:05 HDL Cholesterol 45 mg/dL (40-59) 01/29/17 08:05 Cholesterol/HDL Ratio 4.40 % 01/29/17 08:05 Plasma/Serum Alcohol < 0.01 gm% (0-0.07) 01/26/17 00:45
--- NOTE | 2017-02-02 08:56 | XRay Report ---
CHEST ONE VIEW INDICATION: Pneumonia. COMPARISON: None similar. FINDINGS: Portable, single, frontal chest radiograph demonstrates normal cardiomediastinal silhouette and clear lungs, given the inspiration. Unremarkable bones. CONCLUSION: No acute disease in the chest. Thank you for the opportunity to participate in this patient's care.
[2017-02-02] MEDS: NORVASC PO SCH (10:18)
[2017-02-02] MEDS: PLAVIX PO SCH (10:18)
--- NOTE | 2017-02-02 12:15 | Progress Note ---
Assessment and Plan Assessment and plan: Patient is a 57-year-old man with a history of hypertension and acute ND month prior (another hospital) to presentation to [facility] emergency Department ED who presented with dizziness/vertigo/disequilibrium symptoms. CT head without contrast was unremarkable. 01/28/2017 MRI brain without contrast read as focal area of acute to subacute ischemia in the right middle cerebellar peduncle and inferior right cerebellar hemisphere. 2D Echocardiogram read as left ventricular chamber size is normal, global left systolic function is normal , estimated EF is 55-60%, trace AR, trace MR, trace TR. -Acute ischemic stroke: Patient was on aspirin prior to admission, so he failed ASA therapy, he was placed on aspirin plus Plavix, we'll stop aspirin and continue Plavix to decrease risk for GI bleed, continue statin -Dyslipidemia: Continue statin -Uncontrolled hypertension: Treat with antihypertensive -New issue, acute renal failure, vasomotor nephropathy present on admission: Avoid nephrotoxic drugs, consulted nephrology and ordered renal ultrasound -New issue: Low grade temperature, ordered chest x-ray, blood cultures, urinalysis, ordered Tylenol Full code Disposition: The [facility] that he had [facility] is not in network with his insurance; so he has elected to go home with PT OT, discussed with his ex- Bettina over the phone, he wants her help in making medical decisions, they have 3 children boys together and he will be living with her after hospitalization. If he remains afebrile and renal function has improved then d/ c Home with PT/OT tomorrow, ordered a.m. labs, follow-up on renal ultrasound History Interval history: Patient seen and examined. Follow up on unsteady gait. Overnight low grade temp. No cp, sob, n/v or severe headaches. Imaging, old records, testing, labs, nursing notes reviewed. Hospitalist Physical - Physical exam Narrative exam: GEN: WDWN, NAD, AWAKE, ALERT, ORIENTATED x 3 HEENT: NCAT, PERRL, EOMI, OP CLEAR NECK: SUPPLE, NO THYROMEGALY, NO JVD, NO LAD CVS: RRR, NORMAL S1S2 LUNGS/CHEST: CTA B, NORMAL CHEST EXPANSION B, GOOD AIR ENTRY B ABD: SOFT, NTND, GBS, NO REBOUND OR GUARDING EXT/SKIN: NO SIGNIFICANT EDEMA OR RASH MSK: FROM X 4 EXTREMITIES NEURO: CN 2-12 GROSSLY INTACT, NO NEW FOCAL DEFICITS, he has facial assymmetry with slurred speech, expressive dysarthria, abnormal gait is steady PSY: CALM - Constitutional Vitals: Temp Pulse Resp BP Pulse Ox 98.6 F 76 20 130/80 98 02/02/17 07:25 02/02/17 10:18 02/02/17 07:25 02/02/17 10:18 02/02/17 00:00 General appearance: Present: no acute distress Results - Labs CBC & Chem 7: 01/31/17 08:05 01/31/17 08:05 Labs: Laboratory Last Values WBC 5.9 K/mm3 (4.5-11.0) 01/31/17 08:05 RBC 5.86 M/mm3 (3.65-5.03) H 01/31/17 08:05 Hgb 16.9 gm/dl (11.8-15.2) H 01/31/17 08:05 Hct 51.7 % (35.5-45.6) H 01/31/17 08:05 MCV 88 fl (84-94) 01/31/17 08:05 MCH 29 pg (28-32) 01/31/17 08:05 MCHC 33 % (32-34) 01/31/17 08:05 RDW 13.4 % (13.2-15.2) 01/31/17 08:05 Plt Count 254 K/mm3 (140-440) 01/31/17 08:05 Lymph % (Auto) 15.2 % (13.4-35.0) 01/27/17 04:04 [place] % (Auto) 1.7 % (0.0-7.3) 01/27/17 04:04 Eos % (Auto) 0.1 % (0.0-4.3) 01/27/17 04:04 Baso % (Auto) 0.1 % (0.0-1.8) 01/27/17 04:04 Lymph # 0.8 K/mm3 (1.2-5.4) L 01/27/17 04:04 [place] # 0.1 K/mm3 (0.0-0.8) 01/27/17 04:04 Eos # 0.0 K/mm3 (0.0-0.4) 01/27/17 04:04 Baso # 0.0 K/mm3 (0.0-0.1) 01/27/17 04:04 Seg Neutrophils % 82.9 % (40.0-70.0) H 01/27/17 04:04 Seg Neutrophils # 4.6 K/mm3 (1.8-7.7) 01/27/17 04:04 Sodium 141 mmol/L (137-145) 01/31/17 08:05 Potassium 4.5 mmol/L (3.6-5.0) 01/31/17 08:05 Chloride 100.2 mmol/L (98-107) 01/31/17 08:05 Carbon Dioxide 30 mmol/L (22-30) D 01/31/17 08:05 Anion Gap 15 mmol/L 01/31/17 08:05 BUN 13 mg/dL (9-20) 01/31/17 08:05 Creatinine 1.7 mg/dL (0.8-1.5) H D 01/31/17 08:05 Estimated GFR 51 ml/min 01/31/17 08:05 BUN/Creatinine Ratio 7.64 % 01/31/17 08:05 Glucose 134 mg/dL (75-100) H 01/31/17 08:05 Calcium 9.0 mg/dL (8.4-10.2) 01/31/17 08:05 Total Creatine Kinase 125 units/L (55-170) 01/26/17 00:45 CK-MB (CK-2) 1.7 ng/mL (0.0-4.0) 01/26/17 00:45 CK-MB (CK-2) Rel Index 1.3 (0-4) 01/26/17 00:45 Troponin T < 0.010 ng/mL (0.00-0.029) 01/26/17 00:45 Triglycerides 205 mg/dL (2-149) H 01/29/17 08:05 Cholesterol 198 mg/dL (50-199) 01/29/17 08:05 LDL Cholesterol Direct 112 mg/dL (50-130) 01/29/17 08:05 HDL Cholesterol 45 mg/dL (40-59) 01/29/17 08:05 Cholesterol/HDL Ratio 4.40 % 01/29/17 08:05 Plasma/Serum Alcohol < 0.01 gm% (0-0.07) 01/26/17 00:45
[2017-02-02 14:15] LABS: Bilirubin,Urine NEG (Negative); Blood,Urine NEG (Negative); Ketones,Urine NEG (Negative); Leukocyte Esterase,Urine NEG (Negative); Mucus,Urine 3+ /HPF; Nitrite,Urine NEG (Negative); Protein,Urine <15 mg/dL mg/dL (Negative); Urobilinogen,Urine < 2.0 mg/dL (<2.0)
--- NOTE | 2017-02-02 15:44 | Ultrasound Report ---
ULTRASOUND RENAL INDICATION: Acute renal failure. COMPARISON: None similar. FINDINGS: Renal sonography suggests borderline/slight increased renal cortical echogenicity, not as evident on the right due to somewhat echogenic adjacent imaged liver. Gallstones measuring up to 1.1 cm also seen. Grossly preserved renal contours. No hydronephrosis. RIGHT KIDNEY measures 11.2 x 5.2 x 5 cm with cortical thickness of 1.7 cm. LEFT KIDNEY estimated at 10.8 x 4.8 x 4.1 cm with cortical thickness of 2.1 cm. URINARY BLADDER grossly unremarkable, in so far seen. CONCLUSION: Cholelithiasis, possible fatty liver and underlying medical renal disease sonographically, as described. Please correlate. Thank you for the opportunity to participate in this patient's care.
[2017-02-03] MEDS: TYLENOL PO PRN (07:57)
[2017-02-03] MEDS: NORVASC PO SCH ×2 (07:58→11:19)
[2017-02-03 08:47] LABS: Hematocrit 46.9 % (35.5-45.6); Hemoglobin 15.5 gm/dl (11.8-15.2); Mean Corpuscular HGB Conc 33 % (32-34); Mean Corpuscular Hemoglobin 29 pg (28-32); Mean Corpuscular Volume 89 fl (84-94); Platelet Count 239 K/mm3 (140-440); Red Blood Count 5.27 M/mm3 (3.65-5.03); Red Cell Distribution Width 13.1 % (13.2-15.2); White Blood Count 5.7 K/mm3 (4.5-11.0)
[2017-02-03 09:02] LABS: Anion Gap 14 mmol/L; BUN/Creatinine Ratio 7.85; Blood Urea Nitrogen 11 mg/dL (9-20); Carbon Dioxide 30 mmol/L (22-30); Chloride 101.6 mmol/L (98-107); Glucose 126 mg/dL (75-100); Sodium 142 mmol/L (137-145)
--- NOTE | 2017-02-03 09:27 | Consultation ---
History of Present Illness - Reason for Consult Consult date: 02/03/17 acute renal failure Requesting physician: LISA AGGARWAL - History of Present Illness This is a 56 yo AAM with a history of hypertension, [place], who initially presented to ED on 01/26/17 with complaint of dizziness, vertigo. 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 initial CT head showed no acute findings , however MRI brain on 01/28 without contrast read as focal area of acute to subacute ischemia in the right middle cerebellar peduncle and inferior right cerebellar hemisphere. pt is being treated with ASA, plvix, statin. Pt's renal function was normal initially with Cr around 1.1-1.2mg/dl, however repeat BMP on 01/31 showed elevated Cr at 1.7mg/dl, discharge was held, renal consult requested for management of acute kidney injury. Pt denies any past history of kidney disease, no recent NSAIDs use/IV contrast exposure reported. pt denies fever, chills, nausea, vomiting, diarrhea, abdominal pain, dysuria, rash, CP, SOB, BOCANEGRA. Past History Past Medical History: hypertension, other ([place] a month ago) Past Surgical History: No surgical history Social history: lives with family Family history: CAD, hypertension, stroke Medications and Allergies Allergies Allergy/AdvReac Type Severity Reaction Status Date / Time No Known Allergies Allergy Unverified 01/26/17 00:07 Home Medications Medication Instructions Recorded Confirmed Last Taken Type Aspirin [Aspirin BABY CHEW TAB] 81 mg PO QDAY 01/26/17 01/26/17 Unknown History Hydrochlorothiazide [HCTZ] 25 mg PO QDAY 01/26/17 01/26/17 Unknown History amLODIPine [Norvasc] 10 mg PO DAILY 01/26/17 01/26/17 Unknown History Active Meds: Active Medications Acetaminophen (Tylenol) 650 mg PO Q4H PRN PRN Reason: Pain MILD(1-3)/Fever >100.5/[place] Last Admin: 02/03/17 07:57 Dose: 650 mg Amlodipine Besylate (Norvasc) 10 mg PO DAILY [facility] Last Admin: 02/03/17 07:58 Dose: 10 mg Atorvastatin Calcium (Lipitor) 40 mg PO QHS [facility] Last Admin: 02/02/17 22:27 Dose: 40 mg Bisacodyl (Dulcolax) 10 mg CA QDAY PRN PRN Reason: Constipation unrelieved by MOM Clopidogrel Bisulfate (Plavix) 75 mg PO QDAY [facility] Last Admin: 02/02/17 10:18 Dose: 75 mg Magnesium Hydroxide (Milk Of Magnesia) 30 ml PO Q4H PRN PRN Reason: Constipation Oxycodone/Acetaminophen (Percocet 5/325) 1 tab PO Q6H PRN PRN Reason: Pain, Moderate (4-6) Phenol (Chloraseptic) 1 spray MM PRN PRN PRN Reason: Sore Throat Review of Systems All systems: negative Ears, nose, mouth and throat: vertigo Neurological: vertigo Exam - Vital Signs Vital signs: Vital Signs Temp Pulse Resp BP Pulse Ox 98.8 F 83 18 156/100 99 01/26/17 00:24 01/26/17 00:24 01/26/17 00:24 01/26/17 00:24 01/26/17 00:24 - General Appearance General appearance: well-developed, well-nourished, appears stated age EENT: ATNC, PERRL, mucous membranes moist Neck: Present: neck supple Respiratory: Clear to Ascultation Heart: regular, S1S2 Gastrointestinal: Present: normal, normoactive bowel sounds Integumentary: no rash, other (no edema ) Neurologic: no focal deficit, alert and oriented x3, strength 5/5, CN 3-12 intact Psychiatric: mood/affect appropriate, cooperative Results - Lab Results 02/03/17 07:56 02/03/17 07:56 Most recent lab results Calcium 9.0 mg/dL (8.4-10.2) 02/03/17 07:56 Laboratory Tests 02/02/17 13:01 Urine Color Yellow Urine Turbidity Clear Urine pH 5.0 Ur Specific [place] 1.015 Urine Protein <15 mg/dl Urine Glucose (UA) Neg Urine Ketones Neg Urine Blood Neg Urine Nitrite Neg Urine Bilirubin Neg Urine Urobilinogen < 2.0 Ur Leukocyte Esterase Neg Urine WBC (Auto) 1.0 Urine RBC (Auto) 2.0 U Epithel Cells (Auto) < 1.0 Urine Mucus 3+ Assessment and Plan - Patient Problems (1) Acute kidney injury Current Visit: Yes Status: Acute Plan to address problem: acute kidney injury is most likely due to pre-renal azotemia. UA showed no evidence of hematuria or signficant proteinuria, doubt acute glomerular injury. Renal US shows mildly increased echogenicity, however no mass, no hydro. renal function improving on IV NS. cont supportive care for CHERISE avoid nephrotoxins, NSAIDs, IV contrast. Otherwise pt is stable for discharge from renal stand point with outpt f/u in 1- 2 weeks. (2) CVA (cerebrovascular accident) Current Visit: Yes Status: Acute Qualifiers: CVA mechanism: C Precerebral and cerebral artery: cerebellar artery Laterality of affected vessel: right Plan to address problem: cont ASA, Plavix, stating. OT/PT (3) Hypertension Current Visit: Yes Status: Acute Qualifiers: Hypertension type: H Plan to address problem: cont BP control with amlodipine (4) Lipidemia Current Visit: Yes Status: Acute Qualifiers: Hyperlipidemia type: H Plan to address problem: on atorvastatin
--- NOTE | 2017-02-03 10:42 | Discharge Summary ---
Providers - Providers Date of Admission: 01/26/17 07:53 Attending physician: ORTEGA RAMSAY MD 01/27/17 08:35 Consult to Physician [CONS] Routine Consulting Provider: RATNA SAENZ Reason For Exam: vertigo Place consult to:: dr. saenz Notified:: answering service Phone number called:: Was contact made?: Yes If yes, spoke with:: audrey Time called:: 08:48 01/29/17 08:22 Physical Therapy Evaluation and Treat [CONS] Routine Comment: Reason For Exam: CVA 02/02/17 12:26 Consult to Physician [CONS] Routine Consulting Provider: KATHY BENSON Reason For Exam: ARF Place consult to:: Vidya HUFFMAN Notified:: office Phone number called:: Was contact made?: Yes If yes, spoke with:: mark Time called:: 16:00 Primary care physician: [employer] Hospitalization Reason for admission: Acute CVA Condition: Stable Pertinent studies: 01/28/2017 MRI brain without contrast read as focal area of acute to subacute ischemia in the right middle cerebellar peduncle and inferior right cerebellar hemisphere. Hospital course: Patient is a 57-year-old man with a history of hypertension and acute [place] month prior (another hospital) to presentation to [facility] emergency Department ED who presented with dizziness/vertigo/disequilibrium symptoms. CT head without contrast was unremarkable. 01/28/2017 MRI brain without contrast read as focal area of acute to subacute ischemia in the right middle cerebellar peduncle and inferior right cerebellar hemisphere. 2D Echocardiogram read as left ventricular chamber size is normal, global left systolic function is normal , estimated EF is 55-60%, trace AR, trace MR, trace TR. -Acute ischemic stroke: Patient was treated with statin and plavix to be continued on discharge. -Dyslipidemia: Continue statin -Uncontrolled hypertension: Treat with antihypertensive -New issue, acute renal failure, vasomotor nephropathy present on admission: Avoid nephrotoxic drugs, consulted nephrology and ordered renal ultrasound, resolved. Disposition: Patient discharged to acute rehab. Patient was hemodynamically stable at the time of discharge. Patient is advised to have follow-up with neurology. Patient's concerns and questions were answered at the bedside. Disposition: [id number] - Discharge Diagnoses (1) Acute kidney injury Status: Acute (2) CVA (cerebrovascular accident) Status: Acute Qualifiers: CVA mechanism: C Precerebral and cerebral artery: cerebellar artery Laterality of affected vessel: right (3) Hypertension Status: Acute Qualifiers: Hypertension type: H (4) Lipidemia Status: Acute Qualifiers: Hyperlipidemia type: H (5) Vertigo Status: Acute Core Measure Documentation - Palliative Care Palliative Care/ Comfort Measures: Not Applicable - Core Measures Any of the following diagnoses?: stroke, none - Stroke Discharge Requirements Statin for LDL = or >70 mg/dl on DC: Yes Anticoag for atrial fib/atrial flutter: Not Applicable Antithrombotic for ischemic stroke: Yes Exam - Physical Exam Narrative exam: Not in cardiopulmonary distress. The patient appeared well nourished and normally developed. Vital signs as documented. Head exam is unremarkable. No scleral icterus . Neck is without jugular venous distension, thyromegaly, or carotid bruits. Lungs are clear to auscultation. Cardiac exam reveals regular rate and Rhythm. Abdominal exam reveals normal bowel sounds, no masses, no organomegaly and no aortic enlargement. Extremities are nonedematous and both femoral and pedal pulses are normal. BUSINESS APPLICATIONS ANALYST: Alert and oriented 3. right sided facial palsy. - Constitutional Vitals: Temp Pulse Resp BP Pulse Ox 99 F 64 24 154/109 96 02/03/17 07:15 02/03/17 07:15 02/03/17 07:15 02/03/17 07:15 02/03/17 07:15 Plan Activity: advance as tolerated Weight Bearing Status: Full Weight Bearing Diet: low fat, low cholesterol, low salt Special Instructions: physical therapy Follow up with: PRIMARY CARE, [Primary Care Provider] - 3-5 Days Prescriptions: Bisacodyl [Dulcolax suppos] 10 mg IN QDAY PRN #12 supp.rect PRN Reason: Constipation unrelieved by MOM oxyCODONE /ACETAMINOPHEN [Percocet 5/325 mg] 1 tab PO Q6H PRN #20 tablet PRN Reason: Pain, Moderate (4-6) Phenol 1.4% [Chloraseptic] 1 spray MM PRN PRN #1 bottle PRN Reason: Sore Throat
[2017-02-03] MEDS: PLAVIX PO SCH (11:19)
[2017-02-03 15:18] VITALS: BP 128/92
== END 2017-02-03 21:10 | DRG 64 ==
LOC: ED 23:52 → 3A 01-26 07:53
PROVIDERS: ADMIT Internal Medicine; ATTEND Internal Medicine
DX: I63.9 Cerebral infarction, unspecified (principal); N17.0 Acute kidney failure with tubular necrosis; I10 Essential (primary) hypertension; R00.1 Bradycardia, unspecified; E78.5 Hyperlipidemia, unspecified; H90.3 Sensorineural hearing loss, bilateral; I25.2 Old myocardial infarction; Z82.3 Family history of stroke; Z82.49 Family history of ischemic heart disease and other diseases of the circulatory system; Z90.49 Acquired absence of other specified parts of digestive tract
CPT/HCPCS: 36415; 70450; 70551; 71010; 76770; 80048; 80061; 80320; 81001; 82550; 82553; 84484; 85025; 85027; 87040; 93005; 93010; 93306; 93880; 96374; 96375; 99285; A9270-GY; G0480; G8978-GP; G8979-GP; J1650; J2060; J2405; J2920; J7030; J7042